=== PATIENT | female | born 1960 | race Caucasian/White ===

== ENCOUNTER 2023-09-30 17:05 | Inpatient (IN) | payer MEDICAID ==
[~2023-09-30] VITALS: Ht 167.6 cm; Wt 74.6 kg
[2023-09-30] MEDS ORDERED: octreotide inj. 500 MCG in normal saline 100ml IV soln 97.5 ML IV SCH (17:20)
[2023-09-30 17:40] LABS: BASOPHILS # (AUTO) 0.2 X10'3 (0-0.2); BASOPHILS % (AUTO) 1.5 % (0-1); EOSINOPHILS # (AUTO) 0.3 X10'3 (0-0.9); EOSINOPHILS % (AUTO) 2.7 % (0-6); HEMATOCRIT 30.4 % (35.0-45.0); HEMOGLOBIN 10.2 g/dl (12.0-16.0); LYMPHOCYTES # (AUTO) 2.3 X10'3 (1.1-4.8); LYMPHOCYTES % (AUTO) 19.2 % (21-51); MEAN CORPUSCULAR HEMOGLOBIN 30.8 PG (27.0-31.0); MEAN CORPUSCULAR HGB CONC 33.6 g/dL (33.0-36.5); MEAN CORPUSCULAR VOLUME 91.9 FL (78-98); MONOCYTES # (AUTO) 1.3 X10'3 (0-0.9); MONOCYTES % (AUTO) 10.5 % (2-12); NEUTROPHILS % (AUTO) 66.1 % (42-75); PLATELET COUNT 225 X10'3 (140-440); RED BLOOD COUNT 3.31 X10'6 (4.20-5.60); RED CELL DISTRIBUTION WIDTH 23.4 % (11.5-14.5)
[2023-09-30 17:55] LABS: PLATELET ESTIMATE NORMAL
[2023-09-30 17:56] LABS: ANISOCYTOSIS 3+; BURR CELLS FEW; POLYCHROMASIA FEW
[2023-09-30] MEDS: OCTREOTIDE 1,250 MCG in NS 250ml IV.SOLN IV SCH (17:57)
[2023-09-30 17:58] LABS: ALBUMIN 2.2 G/DL (3.4-5.0); ANION GAP 15 (8-16); BLOOD UREA NITROGEN 53 MG/DL (7-18); BUN/CREATININE RATIO 15.8 (10.0-20.0); CALCIUM 8.8 MG/DL (8.5-10.1); CHLORIDE 93 MMOL/L (99-107); CREATININE 3.36 MG/DL (0.40-0.90); GLUCOSE 92 MG/DL (70-104); MAGNESIUM 1.4 MG/DL (1.5-2.4); POTASSIUM 3.5 MMOL/L (3.5-5.1); SODIUM 131 MMOL/L (135-145); TOTAL CARBON DIOXIDE 23.3 MMOL/L (24-32); eCRCL 16 ML/MIN; eGFR 14 ML/MIN
[2023-09-30] MEDS: fentaNYL/PF 50MCG/1 ML 2ML syringe IV ONE ×2 (17:58→19:03)
[2023-09-30] MEDS ORDERED: potassium Cl 20 mEq SR tablet PO PRN (18:30)
[2023-09-30] MEDS ORDERED: magnesium sulf-water 4G/100mL 100 ML IV PRN (18:30)
[2023-09-30] MEDS ORDERED: magnesium sulf-water 2g/50mL 50 ML IV PRN (18:30)
[2023-09-30] MEDS ORDERED: magnesium hydroxide 30ml (MOM) UD suspension PO PRN (18:30)
[2023-09-30] MEDS ORDERED: mag hydrox/Alum hydrox/simeth 30ml oral suspension PO PRN (18:30)
[2023-09-30] MEDS ORDERED: potassium Cl 40MEQ/1/2NS 520ml 520 ML IV PRN (18:30)
[2023-09-30] MEDS: ondansetron/PF 4mg/2ml inj IV ONE (19:03)
[2023-09-30 19:44] LABS: HEMATOCRIT 27.6 % (35.0-45.0); HEMOGLOBIN 9.5 g/dl (12.0-16.0); MEAN CORPUSCULAR HEMOGLOBIN 31.2 PG (27.0-31.0); MEAN CORPUSCULAR HGB CONC 34.3 g/dL (33.0-36.5); MEAN CORPUSCULAR VOLUME 91.2 FL (78-98); MEAN PLATELET VOLUME 7.1 FL (7.4-10.4); PLATELET COUNT 212 X10'3 (140-440); RED BLOOD COUNT 3.03 X10'6 (4.20-5.60); RED CELL DISTRIBUTION WIDTH 24.2 % (11.5-14.5); WHITE BLOOD COUNT 11.8 X10'3 (4.5-11.0)
[2023-09-30] MEDS: K and/or MAG REPLACEMENT MC SCH (20:00)
[2023-09-30] MEDS: CefTRIAXone 2gm/D5W 50ml BAG 50 ML IV ONE (20:05)
[2023-09-30] MEDS: levoFLOXACIN-Levaquin 750MG/D5 150 ML IV STA (20:06)
[2023-09-30] MEDS: ringers solution, lacted 1,000 ML IV ONE (20:06)
[2023-09-30 21:30] VITALS: BP 124/79; PULSE 91; RESP 19; O2SAT 97
[2023-09-30 22:00] VITALS: BP 103/70; PULSE 91; RESP 18; O2SAT 97
[2023-09-30] MEDS: ondansetron/PF 4mg/2ml inj IV PRN (22:34)
[2023-09-30] MEDS: pantoprazole 40MG/NS 100ML BAG 100 ML IV SCH (22:34)
[2023-09-30] MEDS: ringers solution, lacted 1,000 ML IV SCH (22:35)
[2023-09-30] MEDS: docusate sod 100mg capsule PO SCH (22:51)
[2023-09-30] MEDS: chlordiazePOXIDE 25mg capsule PO SCH (22:52)
[2023-09-30 23:00] VITALS: BP 102/72; PULSE 91; RESP 18; O2SAT 97
[2023-10-01] VITALS (40 sets, daily range): BP systolic 80–132; BP diastolic 16–89; PULSE 81–107; RESP 12–28; TEMP 98.6; O2SAT 80–100
[2023-10-01 02:38] LABS: BASOPHILS # (AUTO) 0.1 X10'3 (0-0.2); BASOPHILS % (AUTO) 0.5 % (0-1); EOSINOPHILS # (AUTO) 0.3 X10'3 (0-0.9); EOSINOPHILS % (AUTO) 2.8 % (0-6); HEMATOCRIT 26.6 % (35.0-45.0); HEMOGLOBIN 9.1 g/dl (12.0-16.0); LYMPHOCYTES # (AUTO) 1.9 X10'3 (1.1-4.8); LYMPHOCYTES % (AUTO) 17.9 % (21-51); MEAN CORPUSCULAR HEMOGLOBIN 31.4 PG (27.0-31.0); MEAN CORPUSCULAR HGB CONC 34.2 g/dL (33.0-36.5); MEAN PLATELET VOLUME 7.1 FL (7.4-10.4); MONOCYTES # (AUTO) 1.3 X10'3 (0-0.9); MONOCYTES % (AUTO) 11.9 % (2-12); NEUTROPHILS # (AUTO) 7.3 X10'3 (1.8-7.7); NEUTROPHILS % (AUTO) 66.9 % (42-75); PLATELET COUNT 209 X10'3 (140-440); RED BLOOD COUNT 2.89 X10'6 (4.20-5.60); WHITE BLOOD COUNT 10.9 X10'3 (4.5-11.0)
[2023-10-01] MEDS: metoclopramide 5 mg/ml inj IV ONE (02:40)
[2023-10-01 03:03] LABS: APTT 30 SECONDS (22-32); INR 1.2 INR; PROTHROMBIN TIME 12.4 SECONDS (9.0-12.0)
[2023-10-01 03:15] LABS: ALANINE AMINOTRANSFERASE 16 U/L (12-78); ALBUMIN 1.9 G/DL (3.4-5.0); ALKALINE PHOSPHATASE 109 IU/L (46-116); ANION GAP 13 (8-16); ASPARTATE AMINO TRANSFERASE 16 U/L (10-37); BILIRUBIN,TOTAL 4.7 MG/DL (0.1-1.0); BLOOD UREA NITROGEN 52 MG/DL (7-18); BUN/CREATININE RATIO 16.9 (10.0-20.0); CALCIUM 8.6 MG/DL (8.5-10.1); CHLORIDE 95 MMOL/L (99-107); CREATININE 3.08 MG/DL (0.40-0.90); GLUCOSE 118 MG/DL (70-104); MAGNESIUM 1.5 MG/DL (1.5-2.4); POTASSIUM 3.6 MMOL/L (3.5-5.1); SODIUM 132 MMOL/L (135-145); eCRCL 17 ML/MIN; eGFR 15 ML/MIN
[2023-10-01 03:31] LABS: ALBUMIN/GLOBULIN RATIO 0.5 (1.1-1.5); PHOSPHORUS 4.6 MG/DL (2.3-4.5); TOTAL PROTEIN 5.8 G/DL (6.4-8.2)
[2023-10-01] MEDS: CefTRIAXone/D5W-Rocephin 1gm 50 ML IV SCH (08:35)
[2023-10-01] MEDS: levoFLOXACIN-Levaquin 750MG/D5 150 ML IV SCH (08:35)
[2023-10-01] MEDS ORDERED: fentaNYL/PF 50MCG/1 ML 2ML syringe ONE (08:53)
[2023-10-01] MEDS ORDERED: diphenhydrAMINE 50 mg/ml inj ONE (08:54)
[2023-10-01] MEDS ORDERED: MIDAZolam 1 MG/ML 5ML VIAL ONE (08:54)
[2023-10-01] MEDS ORDERED: glucagon, human recombinant 1mg kit ONE (08:54)
[2023-10-01] MEDS ORDERED: LIDOcaine 2% Viscous 15ml cup ONE (08:55)
[2023-10-01] MEDS ORDERED: epiNEPHrine 0.1mg/ml 10ml syringe ONE (08:55)
[2023-10-01 09:24] LABS: HEMATOCRIT 26.8 % (35.0-45.0); HEMOGLOBIN 9.1 g/dl (12.0-16.0); MEAN CORPUSCULAR HEMOGLOBIN 31.4 PG (27.0-31.0); MEAN CORPUSCULAR HGB CONC 33.9 g/dL (33.0-36.5); MEAN CORPUSCULAR VOLUME 92.6 FL (78-98); PLATELET COUNT 193 X10'3 (140-440); RED BLOOD COUNT 2.89 X10'6 (4.20-5.60); RED CELL DISTRIBUTION WIDTH 25.4 % (11.5-14.5); WHITE BLOOD COUNT 11.4 X10'3 (4.5-11.0)
[2023-10-01] MEDS ORDERED: FOLI1TAB27 PO (13:25)
[2023-10-01] MEDS ORDERED: SPIR100T5 PO (13:25)
[2023-10-01] MEDS ORDERED: FURO40TA4 PO (13:25)
[2023-10-01] MEDS ORDERED: PANT40TA54 PO (13:25)
[2023-10-01] MEDS ORDERED: PROP10TA10 PO (13:25)
[2023-10-01] MEDS: albumin (human) 25% 100 ML IV solution IV ONE (13:41)
[2023-10-01 15:03] LABS: HEMATOCRIT 26.3 % (35.0-45.0); HEMOGLOBIN 8.8 g/dl (12.0-16.0); MEAN CORPUSCULAR HEMOGLOBIN 30.9 PG (27.0-31.0); MEAN CORPUSCULAR HGB CONC 33.5 g/dL (33.0-36.5); MEAN CORPUSCULAR VOLUME 92.3 FL (78-98); MEAN PLATELET VOLUME 7.1 FL (7.4-10.4); PLATELET COUNT 182 X10'3 (140-440); RED BLOOD COUNT 2.85 X10'6 (4.20-5.60); RED CELL DISTRIBUTION WIDTH 25.2 % (11.5-14.5); WHITE BLOOD COUNT 11.4 X10'3 (4.5-11.0)
[2023-10-01] MEDS: multivitamins, therapeutics tablet PO SCH (15:03)
[2023-10-01] MEDS: folic acid 1mg tablet PO SCH (15:03)
[2023-10-01] MEDS: thiamine 100mg tablet PO ONE (15:03)
[2023-10-01] MEDS: acetaminophen 325mg tablet PO PRN (15:12)
[2023-10-01 15:16] LABS: BF RBC COUNT 26 /CU MM; BF WBC COUNT 96 /CU MM (0-1000); BFAPPEAR CLEAR; BFCOLOR YELLOW; BFSOURCE PERITONEAL FLD; BFVOLUME 68 ML
[2023-10-01 15:18] LABS: ALBUMIN,BODY FLUID 0.9 G/DL
[2023-10-01 15:22] LABS: LYMPHOCYTES,BODY FLUID 32 %; MONOCYTES,BODY FLUID 50 %; NEUTROPHILS,BODY FLUID 18 %
[2023-10-01 15:23] LABS: BF MESOTHELIAL CELLS MODERATE
[2023-10-01 19:22] LABS: HEMATOCRIT 24.5 % (35.0-45.0); HEMOGLOBIN 8.4 g/dl (12.0-16.0); MEAN CORPUSCULAR HEMOGLOBIN 31.8 PG (27.0-31.0); MEAN CORPUSCULAR HGB CONC 34.1 g/dL (33.0-36.5); MEAN CORPUSCULAR VOLUME 93.2 FL (78-98); MEAN PLATELET VOLUME 7.1 FL (7.4-10.4); PLATELET COUNT 147 X10'3 (140-440); RED BLOOD COUNT 2.63 X10'6 (4.20-5.60); RED CELL DISTRIBUTION WIDTH 25.5 % (11.5-14.5); WHITE BLOOD COUNT 10.2 X10'3 (4.5-11.0)
[2023-10-01] MEDS: albumin (Human) 5% 250ml 250 ML IV SCH (20:35)
[2023-10-01 22:00] LABS: BASOPHILS # (AUTO) 0.1 X10'3 (0-0.2); BASOPHILS % (AUTO) 0.9 % (0-1); EOSINOPHILS # (AUTO) 0.2 X10'3 (0-0.9); EOSINOPHILS % (AUTO) 1.7 % (0-6); HEMATOCRIT 23.7 % (35.0-45.0); LYMPHOCYTES # (AUTO) 1.2 X10'3 (1.1-4.8); LYMPHOCYTES % (AUTO) 12.2 % (21-51); MEAN CORPUSCULAR HEMOGLOBIN 31.5 PG (27.0-31.0); MEAN CORPUSCULAR HGB CONC 33.6 g/dL (33.0-36.5); MEAN CORPUSCULAR VOLUME 93.8 FL (78-98); MEAN PLATELET VOLUME 6.9 FL (7.4-10.4); MONOCYTES % (AUTO) 10.5 % (2-12); NEUTROPHILS # (AUTO) 7.2 X10'3 (1.8-7.7); NEUTROPHILS % (AUTO) 74.7 % (42-75); PLATELET COUNT 131 X10'3 (140-440); RED BLOOD COUNT 2.53 X10'6 (4.20-5.60); RED CELL DISTRIBUTION WIDTH 25.4 % (11.5-14.5); WHITE BLOOD COUNT 9.6 X10'3 (4.5-11.0)
[2023-10-01] MEDS: ringers solution, lacted 1,000 ML IV ONE (22:35)
[2023-10-02] VITALS (20 sets, daily range): BP systolic 78–116; BP diastolic 46–74; PULSE 88–110; RESP 13–24; TEMP 97.4–98.1; O2SAT 92–97
[2023-10-02] MEDS ORDERED: hydrocortisone sod succ/PF 250mg/2ml inj. IV SCH (01:05)
[2023-10-02] MEDS: hydrocortisone sod succ/PF 100mg/2ml inj. IV SCH (01:21)
[2023-10-02 02:22] LABS: HEMATOCRIT 25.3 % (35.0-45.0); HEMOGLOBIN 8.5 g/dl (12.0-16.0); MEAN CORPUSCULAR HEMOGLOBIN 31.2 PG (27.0-31.0); MEAN CORPUSCULAR HGB CONC 33.7 g/dL (33.0-36.5); MEAN CORPUSCULAR VOLUME 92.7 FL (78-98); MEAN PLATELET VOLUME 7.1 FL (7.4-10.4); PLATELET COUNT 123 X10'3 (140-440); RED BLOOD COUNT 2.73 X10'6 (4.20-5.60); RED CELL DISTRIBUTION WIDTH 23.4 % (11.5-14.5)
[2023-10-02 02:55] LABS: ALANINE AMINOTRANSFERASE 10 U/L (12-78); ALBUMIN 2.4 G/DL (3.4-5.0); ALKALINE PHOSPHATASE 65 IU/L (46-116); ANION GAP 11 (8-16); ASPARTATE AMINO TRANSFERASE 16 U/L (10-37); BILIRUBIN,TOTAL 3.8 MG/DL (0.1-1.0); BLOOD UREA NITROGEN 42 MG/DL (7-18); BUN/CREATININE RATIO 17.8 (10.0-20.0); CALCIUM 8.4 MG/DL (8.5-10.1); CHLORIDE 101 MMOL/L (99-107); CREATININE 2.36 MG/DL (0.40-0.90); GLUCOSE 145 MG/DL (70-104); MAGNESIUM 1.3 MG/DL (1.5-2.4); PHOSPHORUS 3.6 MG/DL (2.3-4.5); POTASSIUM 3.1 MMOL/L (3.5-5.1); SODIUM 137 MMOL/L (135-145); TOTAL CARBON DIOXIDE 25.1 MMOL/L (24-32); TOTAL PROTEIN 4.9 G/DL (6.4-8.2); eCRCL 23 ML/MIN; eGFR 21 ML/MIN
[2023-10-02] MEDS: magnesium Cl slow-release 64mg tablet PO PRN (03:23)
[2023-10-02] MEDS: potassium Cl 40MEQ/270ML bag 270 ML IV PRN (03:25)
[2023-10-02] MEDS: chlordiazePOXIDE 25mg capsule PO SCH (08:00)
[2023-10-02] MEDS: pantoprazole 40mg Tablet.DR PO SCH (08:01)
[2023-10-02] MEDS: thiamine 100mg tablet PO SCH (08:02)
[2023-10-02 09:18] LABS: POTASSIUM 3.9 MMOL/L (3.5-5.1)
[2023-10-02] MEDS: HYDROcodone/acetaminophen 5mg/325mg tablet PO PRN (17:08)
[2023-10-02 21:10] LABS: INR 1.2 INR
[2023-10-02 21:17] LABS: % IRON SATURATION 26 % (11-46); IRON 17 UG/DL (49-151); TOTAL IRON BINDING CAPACITY 66 UG/DL (259-388)
[2023-10-02 21:33] LABS: HEMATOCRIT 28.1 % (35.0-45.0); HEMOGLOBIN 9.3 g/dl (12.0-16.0); MEAN CORPUSCULAR HEMOGLOBIN 31.7 PG (27.0-31.0); MEAN CORPUSCULAR VOLUME 96.1 FL (78-98); MEAN PLATELET VOLUME 7.1 FL (7.4-10.4); PLATELET COUNT 137 X10'3 (140-440); RED BLOOD COUNT 2.92 X10'6 (4.20-5.60); RED CELL DISTRIBUTION WIDTH 25.9 % (11.5-14.5); WHITE BLOOD COUNT 9.9 X10'3 (4.5-11.0)
[2023-10-03] MEDS: albumin (Human) 5% 250ml 250 ML IV ONE (01:42)
[2023-10-03 05:02] LABS: MAGNESIUM 1.6 MG/DL (1.5-2.4)
[2023-10-03 06:00] VITALS: BP 103/71; PULSE 107; RESP 16; TEMP 98; O2SAT 94
[2023-10-03 08:00] VITALS: RESP 16; O2SAT 94
[2023-10-03] MEDS ORDERED: levoFLOXACIN-Levaquin 500mg/D5 100 ML IV SCH (08:00)
[2023-10-03] MEDS ORDERED: PEG 3350/Na sulf,bicarb,Cl/KCl oral sol 4 liter bottle PO ONE (08:00)
[2023-10-03 09:15] LABS: ALBUMIN 2.9 G/DL (3.4-5.0); ANION GAP 11 (8-16); BLOOD UREA NITROGEN 33 MG/DL (7-18); BUN/CREATININE RATIO 19.4 (10.0-20.0); CALCIUM 9.2 MG/DL (8.5-10.1); CHLORIDE 108 MMOL/L (99-107); GLUCOSE 118 MG/DL (70-104); POTASSIUM 3.2 MMOL/L (3.5-5.1); SODIUM 141 MMOL/L (135-145); TOTAL CARBON DIOXIDE 22.2 MMOL/L (24-32); eCRCL 31 ML/MIN; eGFR 30 ML/MIN
[2023-10-03 10:00] VITALS: BP 89/47; PULSE 104; RESP 16; TEMP 98.5; O2SAT 94
[2023-10-03] MEDS: potassium Cl 20 mEq SR tablet PO PRN ×2 (11:01→19:49)
[2023-10-03] MEDS: lactulose 20gm/30ml cup PO SCH (14:00)
[2023-10-03] MEDS: PEG 3350/Na sulf,bicarb,Cl/KCl oral sol 4 liter bottle PO ONE (16:23)
[2023-10-03 17:12] LABS: HEP B CORE AB, IGM Negative (Negative); HEPATITIS C VIRUS ANTIBODY Equivocal (Non Reactive)
[2023-10-03 18:00] VITALS: BP 105/64; PULSE 72; RESP 15; TEMP 98; O2SAT 96
[2023-10-03] MEDS ORDERED: potassium Cl 20 mEq SR tablet PO PRN (19:45)
[2023-10-03] MEDS ORDERED: potassium Cl 40MEQ/1/2NS 520ml 520 ML IV PRN (19:45)
[2023-10-03 22:00] VITALS: BP 99/61; PULSE 107; RESP 16; TEMP 98.7; O2SAT 94
[2023-10-04] VITALS (16 sets, daily range): BP systolic 83–110; BP diastolic 55–85; PULSE 86–106; RESP 15–26; TEMP 97.2–98.4; O2SAT 92–100
[2023-10-04] MEDS: albuterol 2.5 MG/3 ML nebule NEB ONE (04:58)
[2023-10-04] MEDS: lactulose 20gm/30ml cup PO SCH (07:46)
[2023-10-04 07:48] LABS: MAGNESIUM 1.4 MG/DL (1.5-2.4); POTASSIUM 3.7 MMOL/L (3.5-5.1)
[2023-10-04] MEDS: furosemide 40mg tablet PO SCH (07:52)
[2023-10-04] MEDS: spironolactone 50 MG tablet PO SCH (07:53)
[2023-10-04 08:22] LABS: ALANINE AMINOTRANSFERASE 13 U/L (12-78); ALBUMIN 3.1 G/DL (3.4-5.0); ALBUMIN/GLOBULIN RATIO 0.9 (1.1-1.5); ALKALINE PHOSPHATASE 87 IU/L (46-116); ANION GAP 11 (8-16); ASPARTATE AMINO TRANSFERASE 29 U/L (10-37); BILIRUBIN,TOTAL 3.6 MG/DL (0.1-1.0); BLOOD UREA NITROGEN 32 MG/DL (7-18); BUN/CREATININE RATIO 22.4 (10.0-20.0); CALCIUM 9.9 MG/DL (8.5-10.1); CHLORIDE 105 MMOL/L (99-107); CREATININE 1.43 MG/DL (0.40-0.90); GLUCOSE 110 MG/DL (70-104); SODIUM 141 MMOL/L (135-145); TOTAL CARBON DIOXIDE 24.7 MMOL/L (24-32); TOTAL PROTEIN 6.6 G/DL (6.4-8.2); eCRCL 37 ML/MIN; eGFR 37 ML/MIN
[2023-10-04 08:36] LABS: BASOPHILS # (AUTO) 0.1 X10'3 (0-0.2); BASOPHILS % (AUTO) 0.8 % (0-1); EOSINOPHILS # (AUTO) 0.2 X10'3 (0-0.9); EOSINOPHILS % (AUTO) 2.5 % (0-6); HEMATOCRIT 33.6 % (35.0-45.0); LYMPHOCYTES # (AUTO) 1.9 X10'3 (1.1-4.8); LYMPHOCYTES % (AUTO) 25.2 % (21-51); MEAN CORPUSCULAR HEMOGLOBIN 32.2 PG (27.0-31.0); MEAN CORPUSCULAR HGB CONC 32.7 g/dL (33.0-36.5); MEAN CORPUSCULAR VOLUME 98.2 FL (78-98); MEAN PLATELET VOLUME 7.4 FL (7.4-10.4); MONOCYTES # (AUTO) 0.9 X10'3 (0-0.9); NEUTROPHILS # (AUTO) 4.7 X10'3 (1.8-7.7); NEUTROPHILS % (AUTO) 60.5 % (42-75); PLATELET COUNT 125 X10'3 (140-440); RED BLOOD COUNT 3.42 X10'6 (4.20-5.60); RED CELL DISTRIBUTION WIDTH 26.8 % (11.5-14.5); WHITE BLOOD COUNT 7.7 X10'3 (4.5-11.0)
[2023-10-04] MEDS: LORazepam 2 mg/ml vial IV ONE (11:31)
[2023-10-04] MEDS: ondansetron/PF 4mg/2ml inj IV ONE (11:36)
[2023-10-04] MEDS: magnesium sulf-water 2g/50mL 50 ML IV PRN (12:12)
[2023-10-04] MEDS ORDERED: MIDAZolam 1 MG/ML 5ML VIAL ONE (17:27)
[2023-10-04] MEDS ORDERED: fentaNYL/PF 50MCG/1 ML 2ML syringe ONE (17:27)
[2023-10-04] MEDS: furosemide 20 MG/2 ML vial IV ONE (19:01)
[2023-10-04] MEDS: magnesium sulf-water 4G/100mL 100 ML IV PRN (19:12)
[2023-10-05] VITALS (12 sets, daily range): BP systolic 80–109; BP diastolic 47–83; PULSE 80–97; RESP 16–20; TEMP 97–97.7; O2SAT 92–98
[2023-10-05] MEDS: furosemide 20 MG/2 ML vial IV SCH (08:00)
[2023-10-05 09:03] LABS: BASOPHILS # (AUTO) 0.1 X10'3 (0-0.2); BASOPHILS % (AUTO) 1.1 % (0-1); EOSINOPHILS # (AUTO) 0.3 X10'3 (0-0.9); EOSINOPHILS % (AUTO) 4.2 % (0-6); HEMATOCRIT 29.3 % (35.0-45.0); HEMOGLOBIN 9.5 g/dl (12.0-16.0); LYMPHOCYTES # (AUTO) 1.6 X10'3 (1.1-4.8); LYMPHOCYTES % (AUTO) 21.4 % (21-51); MEAN CORPUSCULAR HEMOGLOBIN 31.8 PG (27.0-31.0); MEAN CORPUSCULAR HGB CONC 32.5 g/dL (33.0-36.5); MEAN CORPUSCULAR VOLUME 97.7 FL (78-98); MEAN PLATELET VOLUME 7.2 FL (7.4-10.4); MONOCYTES # (AUTO) 0.7 X10'3 (0-0.9); MONOCYTES % (AUTO) 9.7 % (2-12); NEUTROPHILS # (AUTO) 4.8 X10'3 (1.8-7.7); NEUTROPHILS % (AUTO) 63.6 % (42-75); PLATELET COUNT 103 X10'3 (140-440); RED CELL DISTRIBUTION WIDTH 25.4 % (11.5-14.5); WHITE BLOOD COUNT 7.6 X10'3 (4.5-11.0)
[2023-10-05 09:21] LABS: ALANINE AMINOTRANSFERASE 15 U/L (12-78); ALBUMIN 2.5 G/DL (3.4-5.0); ALBUMIN/GLOBULIN RATIO 0.8 (1.1-1.5); ALKALINE PHOSPHATASE 77 IU/L (46-116); ANION GAP 11 (8-16); ASPARTATE AMINO TRANSFERASE 38 U/L (10-37); BILIRUBIN,TOTAL 2.2 MG/DL (0.1-1.0); BLOOD UREA NITROGEN 30 MG/DL (7-18); BUN/CREATININE RATIO 23.3 (10.0-20.0); CALCIUM 9.4 MG/DL (8.5-10.1); CHLORIDE 106 MMOL/L (99-107); CREATININE 1.29 MG/DL (0.40-0.90); GLUCOSE 97 MG/DL (70-104); MAGNESIUM 2.4 MG/DL (1.5-2.4); POTASSIUM 3.3 MMOL/L (3.5-5.1); SODIUM 142 MMOL/L (135-145); TOTAL CARBON DIOXIDE 24.8 MMOL/L (24-32); TOTAL PROTEIN 5.8 G/DL (6.4-8.2); eCRCL 41 ML/MIN; eGFR 42 ML/MIN
[2023-10-05] MEDS: albumin (human) 25% 100 ML IV solution IV ONE ×2 (11:24→12:42)
[2023-10-05] MEDS ORDERED: POTASSIUM BICARB 20meq eff tab 20 MEQ TABLET.EFF PO PRN (12:52)
[2023-10-05] MEDS: POTASSIUM BICARB 20meq eff tab 20 MEQ TABLET.EFF PO PRN (14:20)
[2023-10-05] MEDS: normal saline 1000ml 1,000 ML IV SCH ×2 (17:45→17:51)
[2023-10-06] VITALS (10 sets, daily range): BP systolic 80–102; BP diastolic 54–80; PULSE 89–101; RESP 16–24; TEMP 97.1–98.3; O2SAT 93–99
[2023-10-06 05:15] LABS: BASOPHILS # (AUTO) 0.1 X10'3 (0-0.2); BASOPHILS % (AUTO) 0.7 % (0-1); EOSINOPHILS # (AUTO) 0.3 X10'3 (0-0.9); EOSINOPHILS % (AUTO) 3.6 % (0-6); HEMATOCRIT 26.4 % (35.0-45.0); HEMOGLOBIN 8.6 g/dl (12.0-16.0); LYMPHOCYTES % (AUTO) 25.5 % (21-51); MEAN CORPUSCULAR HEMOGLOBIN 31.7 PG (27.0-31.0); MEAN CORPUSCULAR HGB CONC 32.5 g/dL (33.0-36.5); MEAN CORPUSCULAR VOLUME 97.4 FL (78-98); MEAN PLATELET VOLUME 7.3 FL (7.4-10.4); MONOCYTES # (AUTO) 0.9 X10'3 (0-0.9); MONOCYTES % (AUTO) 11.7 % (2-12); NEUTROPHILS # (AUTO) 4.7 X10'3 (1.8-7.7); NEUTROPHILS % (AUTO) 58.5 % (42-75); PLATELET COUNT 87 X10'3 (140-440); RED BLOOD COUNT 2.71 X10'6 (4.20-5.60); RED CELL DISTRIBUTION WIDTH 24.8 % (11.5-14.5); WHITE BLOOD COUNT 8.1 X10'3 (4.5-11.0)
[2023-10-06 05:29] LABS: ALANINE AMINOTRANSFERASE 11 U/L (12-78); ALBUMIN 2.3 G/DL (3.4-5.0); ALBUMIN/GLOBULIN RATIO 0.9 (1.1-1.5); ALKALINE PHOSPHATASE 73 IU/L (46-116); ANION GAP 7 (8-16); ASPARTATE AMINO TRANSFERASE 24 U/L (10-37); BLOOD UREA NITROGEN 24 MG/DL (7-18); BUN/CREATININE RATIO 20.2 (10.0-20.0); CALCIUM 8.9 MG/DL (8.5-10.1); CHLORIDE 109 MMOL/L (99-107); CREATININE 1.19 MG/DL (0.40-0.90); GLUCOSE 108 MG/DL (70-104); POTASSIUM 3.4 MMOL/L (3.5-5.1); SODIUM 143 MMOL/L (135-145); TOTAL CARBON DIOXIDE 26.7 MMOL/L (24-32); TOTAL PROTEIN 4.9 G/DL (6.4-8.2); eCRCL 45 ML/MIN; eGFR 46 ML/MIN
[2023-10-06 06:26] LABS: PLATELET ESTIMATE DECREASED
[2023-10-06 06:27] LABS: ANISOCYTOSIS 3+; BURR CELLS FEW; ELLIPTOCYTES FEW; HYPOCHROMASIA 1+; POLYCHROMASIA FEW
[2023-10-06] MEDS: lactulose 20gm/30ml cup PO SCH (08:56)
[2023-10-06] MEDS: lactose-reduced food (Ensure Enlive) - 237ml bottle PO SCH (13:00)
[2023-10-06] MEDS: albumin (human) 25% 100 ML IV solution IV ONE (15:30)
[2023-10-07] VITALS (7 sets, daily range): BP systolic 90–107; BP diastolic 49–70; PULSE 67–97; RESP 18–20; TEMP 97.1–98.9; O2SAT 92–97
[2023-10-07 07:51] LABS: BASOPHILS # (AUTO) 0.1 X10'3 (0-0.2); BASOPHILS % (AUTO) 0.8 % (0-1); EOSINOPHILS # (AUTO) 0.3 X10'3 (0-0.9); EOSINOPHILS % (AUTO) 3.5 % (0-6); HEMATOCRIT 28.7 % (35.0-45.0); HEMOGLOBIN 9.4 g/dl (12.0-16.0); LYMPHOCYTES # (AUTO) 2.1 X10'3 (1.1-4.8); LYMPHOCYTES % (AUTO) 27.5 % (21-51); MEAN CORPUSCULAR HEMOGLOBIN 32.4 PG (27.0-31.0); MEAN CORPUSCULAR HGB CONC 32.9 g/dL (33.0-36.5); MEAN CORPUSCULAR VOLUME 98.5 FL (78-98); MEAN PLATELET VOLUME 7.7 FL (7.4-10.4); MONOCYTES # (AUTO) 0.8 X10'3 (0-0.9); NEUTROPHILS # (AUTO) 4.5 X10'3 (1.8-7.7); NEUTROPHILS % (AUTO) 58.2 % (42-75); PLATELET COUNT 93 X10'3 (140-440); RED BLOOD COUNT 2.91 X10'6 (4.20-5.60); RED CELL DISTRIBUTION WIDTH 24.5 % (11.5-14.5); WHITE BLOOD COUNT 7.7 X10'3 (4.5-11.0)
[2023-10-07 08:00] LABS: ALANINE AMINOTRANSFERASE 15 U/L (12-78); ALBUMIN 2.7 G/DL (3.4-5.0); ALBUMIN/GLOBULIN RATIO 0.9 (1.1-1.5); ALKALINE PHOSPHATASE 86 IU/L (46-116); ANION GAP 6 (8-16); ASPARTATE AMINO TRANSFERASE 26 U/L (10-37); BILIRUBIN,TOTAL 2.6 MG/DL (0.1-1.0); BLOOD UREA NITROGEN 21 MG/DL (7-18); BUN/CREATININE RATIO 20.4 (10.0-20.0); CALCIUM 9.4 MG/DL (8.5-10.1); CHLORIDE 108 MMOL/L (99-107); CREATININE 1.03 MG/DL (0.40-0.90); GLUCOSE 96 MG/DL (70-104); POTASSIUM 4.1 MMOL/L (3.5-5.1); SODIUM 140 MMOL/L (135-145); TOTAL CARBON DIOXIDE 26.3 MMOL/L (24-32); TOTAL PROTEIN 5.6 G/DL (6.4-8.2); eCRCL 52 ML/MIN; eGFR 54 ML/MIN
[2023-10-07] MEDS: furosemide 20MG tablet PO SCH (08:00)
[2023-10-07 10:44] LABS: HEPATITIS C VIRUS ANTIBODY Non Reactive (Non Reactive)
[2023-10-08] VITALS (7 sets, daily range): BP systolic 85–113; BP diastolic 50–79; PULSE 75–105; RESP 12–20; TEMP 97.6–98.5; O2SAT 93–98
[2023-10-08 07:02] LABS: BASOPHILS # (AUTO) 0.1 X10'3 (0-0.2); BASOPHILS % (AUTO) 0.8 % (0-1); EOSINOPHILS # (AUTO) 0.3 X10'3 (0-0.9); EOSINOPHILS % (AUTO) 4.3 % (0-6); HEMATOCRIT 25.7 % (35.0-45.0); HEMOGLOBIN 8.5 g/dl (12.0-16.0); LYMPHOCYTES # (AUTO) 1.8 X10'3 (1.1-4.8); LYMPHOCYTES % (AUTO) 24.2 % (21-51); MEAN CORPUSCULAR HEMOGLOBIN 32.4 PG (27.0-31.0); MEAN CORPUSCULAR HGB CONC 33.2 g/dL (33.0-36.5); MEAN CORPUSCULAR VOLUME 97.5 FL (78-98); MEAN PLATELET VOLUME 7.7 FL (7.4-10.4); MONOCYTES # (AUTO) 0.8 X10'3 (0-0.9); MONOCYTES % (AUTO) 10.2 % (2-12); NEUTROPHILS # (AUTO) 4.5 X10'3 (1.8-7.7); NEUTROPHILS % (AUTO) 60.5 % (42-75); PLATELET COUNT 93 X10'3 (140-440); RED BLOOD COUNT 2.64 X10'6 (4.20-5.60); RED CELL DISTRIBUTION WIDTH 23.5 % (11.5-14.5); WHITE BLOOD COUNT 7.5 X10'3 (4.5-11.0)
[2023-10-08 07:26] LABS: ALANINE AMINOTRANSFERASE 16 U/L (12-78); ALBUMIN 2.4 G/DL (3.4-5.0); ALBUMIN/GLOBULIN RATIO 0.9 (1.1-1.5); ALKALINE PHOSPHATASE 91 IU/L (46-116); ANION GAP 4 (8-16); ASPARTATE AMINO TRANSFERASE 26 U/L (10-37); BILIRUBIN,TOTAL 2.1 MG/DL (0.1-1.0); BLOOD UREA NITROGEN 21 MG/DL (7-18); CALCIUM 8.9 MG/DL (8.5-10.1); CHLORIDE 108 MMOL/L (99-107); GLUCOSE 97 MG/DL (70-104); POTASSIUM 4.3 MMOL/L (3.5-5.1); SODIUM 138 MMOL/L (135-145); TOTAL PROTEIN 5.2 G/DL (6.4-8.2); eCRCL 53 ML/MIN; eGFR 56 ML/MIN
[2023-10-09] VITALS (7 sets, daily range): BP systolic 88–103; BP diastolic 50–70; PULSE 90–104; RESP 12–20; TEMP 97.8–98.2; O2SAT 93–98
[2023-10-09 08:03] LABS: BASOPHILS # (AUTO) 0.1 X10'3 (0-0.2); EOSINOPHILS # (AUTO) 0.4 X10'3 (0-0.9); EOSINOPHILS % (AUTO) 4.9 % (0-6); HEMOGLOBIN 8.8 g/dl (12.0-16.0); LYMPHOCYTES % (AUTO) 27.3 % (21-51); MEAN CORPUSCULAR HEMOGLOBIN 31.9 PG (27.0-31.0); MEAN CORPUSCULAR HGB CONC 32.5 g/dL (33.0-36.5); MEAN CORPUSCULAR VOLUME 98.3 FL (78-98); MEAN PLATELET VOLUME 7.8 FL (7.4-10.4); MONOCYTES # (AUTO) 0.7 X10'3 (0-0.9); MONOCYTES % (AUTO) 9.3 % (2-12); NEUTROPHILS # (AUTO) 4.2 X10'3 (1.8-7.7); NEUTROPHILS % (AUTO) 57.5 % (42-75); PLATELET COUNT 134 X10'3 (140-440); RED BLOOD COUNT 2.75 X10'6 (4.20-5.60); RED CELL DISTRIBUTION WIDTH 23.5 % (11.5-14.5); WHITE BLOOD COUNT 7.2 X10'3 (4.5-11.0)
[2023-10-09 08:13] LABS: ALANINE AMINOTRANSFERASE 22 U/L (12-78); ALBUMIN 2.5 G/DL (3.4-5.0); ALBUMIN/GLOBULIN RATIO 0.8 (1.1-1.5); ALKALINE PHOSPHATASE 104 IU/L (46-116); ANION GAP 5 (8-16); ASPARTATE AMINO TRANSFERASE 36 U/L (10-37); BILIRUBIN,TOTAL 2.2 MG/DL (0.1-1.0); BLOOD UREA NITROGEN 20 MG/DL (7-18); BUN/CREATININE RATIO 20.2 (10.0-20.0); CALCIUM 9.4 MG/DL (8.5-10.1); CHLORIDE 107 MMOL/L (99-107); CREATININE 0.99 MG/DL (0.40-0.90); GLUCOSE 91 MG/DL (70-104); POTASSIUM 4.5 MMOL/L (3.5-5.1); SODIUM 138 MMOL/L (135-145); TOTAL PROTEIN 5.7 G/DL (6.4-8.2); eCRCL 54 ML/MIN; eGFR 56 ML/MIN
[2023-10-09] MEDS: albumin (human) 25% 100 ML IV solution IV ONE (11:09)
[2023-10-10 06:00] VITALS: BP 103/72; PULSE 101; RESP 16; TEMP 98.4; O2SAT 96
[2023-10-10 07:12] LABS: BASOPHILS # (AUTO) 0.1 X10'3 (0-0.2); EOSINOPHILS # (AUTO) 0.3 X10'3 (0-0.9); EOSINOPHILS % (AUTO) 4.7 % (0-6); HEMATOCRIT 27.8 % (35.0-45.0); HEMOGLOBIN 9.1 g/dl (12.0-16.0); LYMPHOCYTES # (AUTO) 1.9 X10'3 (1.1-4.8); LYMPHOCYTES % (AUTO) 26.7 % (21-51); MEAN CORPUSCULAR HEMOGLOBIN 31.7 PG (27.0-31.0); MEAN CORPUSCULAR HGB CONC 32.6 g/dL (33.0-36.5); MEAN CORPUSCULAR VOLUME 97.1 FL (78-98); MEAN PLATELET VOLUME 7.6 FL (7.4-10.4); MONOCYTES # (AUTO) 0.7 X10'3 (0-0.9); MONOCYTES % (AUTO) 9.7 % (2-12); NEUTROPHILS # (AUTO) 4.1 X10'3 (1.8-7.7); NEUTROPHILS % (AUTO) 57.9 % (42-75); PLATELET COUNT 168 X10'3 (140-440); RED BLOOD COUNT 2.86 X10'6 (4.20-5.60); RED CELL DISTRIBUTION WIDTH 22.5 % (11.5-14.5); WHITE BLOOD COUNT 7.1 X10'3 (4.5-11.0)
[2023-10-10 07:31] LABS: ALANINE AMINOTRANSFERASE 19 U/L (12-78); ALBUMIN 2.5 G/DL (3.4-5.0); ALBUMIN/GLOBULIN RATIO 0.8 (1.1-1.5); ALKALINE PHOSPHATASE 106 IU/L (46-116); ANION GAP 6 (8-16); ASPARTATE AMINO TRANSFERASE 34 U/L (10-37); BILIRUBIN,TOTAL 2.6 MG/DL (0.1-1.0); BLOOD UREA NITROGEN 18 MG/DL (7-18); BUN/CREATININE RATIO 16.7 (10.0-20.0); CALCIUM 9.1 MG/DL (8.5-10.1); CHLORIDE 107 MMOL/L (99-107); CREATININE 1.08 MG/DL (0.40-0.90); GLUCOSE 91 MG/DL (70-104); POTASSIUM 4.3 MMOL/L (3.5-5.1); SODIUM 139 MMOL/L (135-145); TOTAL CARBON DIOXIDE 25.6 MMOL/L (24-32); TOTAL PROTEIN 5.7 G/DL (6.4-8.2); eCRCL 49 ML/MIN; eGFR 51 ML/MIN
[2023-10-10 08:00] VITALS: RESP 16; O2SAT 96
[2023-10-10 10:00] VITALS: BP 91/54; PULSE 94; RESP 15; TEMP 98.1; O2SAT 95
[2023-10-10 18:00] VITALS: BP 102/59; PULSE 100; RESP 16; TEMP 97.9; O2SAT 94
[2023-10-10] MEDS: furosemide 20MG tablet PO SCH (20:02)
[2023-10-10 22:00] VITALS: BP 85/50; PULSE 87; RESP 15; TEMP 97.7; O2SAT 94
[2023-10-11 06:00] VITALS: BP 97/58; PULSE 101; RESP 16; TEMP 97.4; O2SAT 95
[2023-10-11] MEDS: spironolactone 50 MG tablet PO SCH (08:17)
[2023-10-11 10:00] VITALS: BP 100/69; PULSE 102; RESP 17; TEMP 97.5; O2SAT 93
[2023-10-11] MEDS ORDERED: HYDR-3965 PO (11:24)
[2023-10-11] MEDS ORDERED: SPIR50TA5 PO (12:00)
[2023-10-11] MEDS ORDERED: FURO-150 PO (12:00)
[2023-10-11] MEDS ORDERED: LACT10SO78 PO (12:00)
== END 2023-10-11 15:03 | disposition home health service (06) | DRG 720 ==
LOC: ER 17:06 → EDBD 17:06 → ED HOLD 18:40 → EDBEDREQ 20:31 → ICU 2S 20:44 → CICU 2S 10-01 07:27 → ORTHO 4S 10-02 13:09
PROVIDERS: ADMIT Internal Medicine Critical Care Medicine; ATTEND Internal Medicine Critical Care Medicine
PROC: 0DB78ZX Excision of Stomach, Pylorus, Via Natural or Artificial Opening Endoscopic, Diagnostic (ICD-10-PCS; principal; 2023-10-01)
PROC: 30233N1 Transfusion of Nonautologous Red Blood Cells into Peripheral Vein, Percutaneous Approach (ICD-10-PCS; 2023-10-01)
PROC: BW211ZZ Computerized Tomography (CT Scan) of Abdomen and Pelvis using Low Osmolar Contrast (ICD-10-PCS; 2023-10-02)
PROC: 0DJD8ZZ Inspection of Lower Intestinal Tract, Via Natural or Artificial Opening Endoscopic (ICD-10-PCS; 2023-10-04)
PROC: 0W9G30Z Drainage of Peritoneal Cavity with Drainage Device, Percutaneous Approach (ICD-10-PCS; 2023-10-05)
PROC: 05HD33Z Insertion of Infusion Device into Right Cephalic Vein, Percutaneous Approach (ICD-10-PCS; 2023-10-05)
PROC: 0W9G30Z Drainage of Peritoneal Cavity with Drainage Device, Percutaneous Approach (ICD-10-PCS; 2023-10-09)
DX: A41.9 Sepsis, unspecified organism (principal); J96.01 Acute respiratory failure with hypoxia; N17.0 Acute kidney failure with tubular necrosis; R65.21 Severe sepsis with septic shock; I50.33 Acute on chronic diastolic (congestive) heart failure; D62 Acute posthemorrhagic anemia; E87.1 Hypo-osmolality and hyponatremia; K29.71 Gastritis, unspecified, with bleeding; K70.31 Alcoholic cirrhosis of liver with ascites; K76.82 Hepatic encephalopathy; F10.20 Alcohol dependence, uncomplicated; K64.3 Fourth degree hemorrhoids; K70.9 Alcoholic liver disease, unspecified; K44.9 Diaphragmatic hernia without obstruction or gangrene; G62.9 Polyneuropathy, unspecified; Z88.2 Allergy status to sulfonamides; Z88.3 Allergy status to other anti-infective agents
CPT/HCPCS: 36410; 36415; 36430; 43239; 45378; 49083; 71045; 74176; 76770; 76937; 80048; 80053; 82042; 82140; 82728; 82948; 83540; 83550; 83605; 83735; 83880; 84100; 84132; 84145; 84484; 85008; 85025; 85027; 85610; 85730; 86705; 86803; 86885; 86900; 86901; 86920; 87040; 87070; 87081; 87522; 89051; 93005; 93306; 94640; 94760; 97110; 97116; 97161; 97530; 97535; 99152; 99153; 99291; A4615; A4620; A6213; A6258; A6402; A6446; A6449; C1751; C1758; G0378; J0171; J0696; J1200; J1610; J1720; J1956; J2060; J2250; J2354; J2405; J2470; J2765; J3010; J3475; J3480; J7030; J7040; J7050; J7120; P9016; P9045; P9047

== ENCOUNTER 2024-01-29 09:51 | Emergency (ER) | payer MEDICAID ==
[~2024-01-29] VITALS: Ht 170.2 cm; Wt 64.0 kg
[~2024-01-29 09:51] MED LIST: FOLI1TAB27 PO; FURO-150 PO; LACT10SO78 PO; PANT40TA54 PO; PROP10TA10 PO; SPIR50TA5 PO
[2024-01-29 09:52] VITALS: TEMP 96.9
[2024-01-29] MEDS ORDERED: NORepinephrine 8mg/ 250ml NS 250 ML IV SCH (09:55)
[2024-01-29] MEDS ORDERED: propofol 1000mg/100ml bottle 100 ML IV PRN (10:00)
[2024-01-29 10:01] VITALS: BP 68/36; PULSE 125; RESP 18; O2SAT 94
[2024-01-29] MEDS: FENTANYL-0.9 % NACL/PF 100 ML IV SCH (10:05)
[2024-01-29] MEDS: NORepinephrine 8mg/ 250ml NS 250 ML IV SCH (10:05)
[2024-01-29] MEDS: propofol 1000mg/100ml bottle 100 ML IV PRN (10:05)
[2024-01-29] MEDS: normal saline 1000ml 1,000 ML IV ONE ×2 (10:05)
[2024-01-29] MEDS: octreotide inj. 500 MCG in normal saline 100ml IV soln 97.5 ML IV SCH (10:20)
[2024-01-29 10:25] LABS: ABG BASE EXCESS -0.7 mmol/L (-2.0-3.0); ABG HCO3 25.8 mmol/L (21.0-28.0); ABG OXYGEN SATURATION 94.1 % (94.0-98.0); ABG PCO2 (T) 49.9 mmHg (32.0-45.0); ABG PH (T) 7.328 (7.350-7.450); FCOHb 0.3 % (0.5-1.5); FHHb 5.9 % (0.0-5.0); FMetHb 0.4 % (0.0-1.5); FO2Hb 93.4 % (94.0-98.0); MODE PRVC; PATIENT TEMPERATURE 36.3; PEEP 5 cm H2O; RESPIRATORY RATE 18 b/min; TIDAL VOLUME 350 mL; TOTAL HEMOGLOBIN 9.8 G/dl (12.0-16.0)
[2024-01-29 10:28] LABS: BASOPHILS % (AUTO) 0.2 % (0-1); EOSINOPHILS % (AUTO) 0.2 % (0-6); HEMOGLOBIN 9.2 g/dl (12.0-16.0); LYMPHOCYTES # (AUTO) 1.9 X10'3 (1.1-4.8); LYMPHOCYTES % (AUTO) 8.9 % (21-51); MEAN CORPUSCULAR HEMOGLOBIN 31.4 PG (27.0-31.0); MEAN CORPUSCULAR HGB CONC 31.7 g/dL (33.0-36.5); MEAN PLATELET VOLUME 7.2 FL (7.4-10.4); MONOCYTES # (AUTO) 1.8 X10'3 (0-0.9); MONOCYTES % (AUTO) 8.3 % (2-12); NEUTROPHILS # (AUTO) 17.9 X10'3 (1.8-7.7); NEUTROPHILS % (AUTO) 82.4 % (42-75); PLATELET COUNT 328 X10'3 (140-440); RED BLOOD COUNT 2.93 X10'6 (4.20-5.60); RED CELL DISTRIBUTION WIDTH 17.7 % (11.5-14.5); WHITE BLOOD COUNT 21.7 X10'3 (4.5-11.0)
[2024-01-29 10:40] LABS: ALANINE AMINOTRANSFERASE 14 U/L (12-78); ALBUMIN 1.5 G/DL (3.4-5.0); ALBUMIN/GLOBULIN RATIO 0.4 (1.1-1.5); ALKALINE PHOSPHATASE 125 IU/L (46-116); ANION GAP 11 (8-16); ASPARTATE AMINO TRANSFERASE 21 U/L (10-37); BILIRUBIN,TOTAL 4.2 MG/DL (0.1-1.0); BLOOD UREA NITROGEN 42 MG/DL (7-18); BUN/CREATININE RATIO 23.6 (10.0-20.0); CALCIUM 8.6 MG/DL (8.5-10.1); CHLORIDE 111 MMOL/L (99-107); CREATININE 1.78 MG/DL (0.40-0.90); GLUCOSE 105 MG/DL (70-104); LIPASE 9 U/L (16-77); SODIUM 151 MMOL/L (135-145); TOTAL CARBON DIOXIDE 28.9 MMOL/L (24-32); TOTAL PROTEIN 5.5 G/DL (6.4-8.2); eCRCL 31 ML/MIN; eGFR 29 ML/MIN
[2024-01-29 10:42] LABS: POTASSIUM 2.4 MMOL/L (3.5-5.1)
[2024-01-29 10:49] LABS: ANISOCYTOSIS 1+; PLATELET ESTIMATE NORMAL; SMUDGE CELLS FEW; TOTAL CELLS COUNTED 100; TOXIC GRANULATION 1+; TOXIC VACUOLATION FEW
[2024-01-29 10:50] LABS: ELLIPTOCYTES FEW; HYPOCHROMASIA 1+; POLYCHROMASIA FEW; STOMATOCYTES FEW
[2024-01-29] MEDS: LORazepam 2 mg/ml vial IV PRN (11:14)
[2024-01-29] MEDS: morphine 10mg/ml inj. IV PRN (11:15)
[2024-01-29 11:21] VITALS: BP 87/47; PULSE 108; RESP 17; O2SAT 99
[2024-01-29 11:23] LABS: INR 1.2 INR
[2024-01-29 11:30] LABS: APTT 25 SECONDS (22-32); PROTHROMBIN TIME 12.4 SECONDS (9.0-12.0)
== END 2024-01-29 15:55 ==
LOC: ER 09:51
DX: A41.9 Sepsis, unspecified organism (principal); K92.2 Gastrointestinal hemorrhage, unspecified; F10.90 Alcohol use, unspecified, uncomplicated; Z88.2 Allergy status to sulfonamides; Z88.8 Allergy status to other drugs, medicaments and biological substances; Z79.899 Other long term (current) drug therapy
CPT/HCPCS: 36415; 36600; 36620; 71045; 80053; 82803; 83605; 83690; 84145; 85007; 85018; 85025; 85610; 85730; 86885; 86900; 86901; 86920; 87040; 87070; 93005; 96365; 96367; 96368; 96375; 99285; C1894; J2060; J2274; J2704; J3010; J7030; J7040; 94002; 94760